=== PATIENT | male | born 1945 | race Caucasian/White ===

== ENCOUNTER 2018-07-18 21:50 | Inpatient (IN) | payer OTHER, BC ==
[~2018-07-18] VITALS: Ht 165.1 cm; Wt 63.3 kg
[~2018-07-18 21:50] MED LIST: ACYCLOVIR 400400 MG PO; ALEVE220 MG PO; CIPRO500 MG PO; DAILY VITAMIN1 EAC6 PO; FISH OIL 1,001000 M2 PO; FLAGYL500 MG PO; PRILOSEC 20 MG20 MG PO; VITAMINC500 PO
[2018-07-18 23:00] VITALS: BP 127/65
[2018-07-19] MEDS ORDERED: COLACE100 MG PO (01:38)
[2018-07-19] MEDS ORDERED: ONDANSETRON HCL4 M2 PO (01:38)
[2018-07-19 05:04] VITALS: BP 97/58
[2018-07-19 05:39] LABS: HEMATOCRIT 36.3 % (42.0-52.0); MCH 25.5 pg (26.0-34.0); MCHC 32.9 g/dL (28.0-37.0); MCV 77.6 fL (80.0-100.0); RBC 4.68 mil/uL (4.50-6.00); RDW 15.8 % (10.5-14.5); WBC 5.4 thou/uL (4.0-11.0)
[2018-07-19 05:49] LABS: PROTIME 10.1 Seconds (9.3-11.4)
[2018-07-19 05:51] LABS: CALCIUM 8.1 mg/dL (8.5-10.1); CREATININE 1.4 mg/dL (0.7-1.3); POTASSIUM 3.6 mmol/L (3.5-5.1)
[2018-07-19 07:45] VITALS: BP 117/70
[2018-07-19 10:15] LABS: % SATURATION 6 % (20-39); IRON 13 ug/dL (65-175); TIBC 217 ug/dL (250-450)
--- NOTE | 2018-07-19 10:21 | H ---
[facility] [place] [place] [address] HISTORY AND PHYSICAL Name: AHSAN VELAZQUEZ Room #: 421-P ADM IN M.R.#: [id number] Admission: 07/18/18 ������������������ Attend Phys: Jam Goldman MD Discharge: ������������������ Date of : 41 Report #: [id number] THIS REPORT FOR: //name// CC: FAM unknown Jam Goldman DATE OF SERVICE: 07/18/2018 ATTENDING PHYSICIAN: Dr. Jey Hampton. PRIMARY CARE PHYSICIAN: Dr. Jordan Schmidt. CHIEF COMPLAINT: Abdominal pain, nausea and vomiting. HISTORY OF PRESENT ILLNESS: The patient is a 72-year-old male who initially presented to [place] [facility] with complaints of abdominal discomfort, nausea and vomiting for 1 week. He describes pain in his belly as a constant discomfort that is worse when he tries to eat or drink anything. He has not been able to keep much food or liquids down for at least 1 week. He has also been having liquid brown to greenish watery stools up to 12 times per day. He states that whenever he does try to drink anything, it goes right through him. He denies seeing any blood in his emesis or his stools. He denies having any formed stool in at least 1 week. He does have a history of colon cancer and has had prior chemo and radiation as well as a bowel resection in 2000. He gets regular colonoscopies with his GI physician and states that they have been normal. 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 He did have an outpatient CT of the abdomen done earlier today, which showed possible gastric outlet obstruction; therefore, he was sent to the ER to be evaluated. The general surgeon at [facility] was not available, so he was transferred here for further evaluation. He also reports a fever up to 101.8 earlier this week. He has an NG tube placed at [facility] and 500 mL of liquid was drained. He does state that his abdominal distention and pain have improved and he has not had any further vomiting since the tube has been placed. He denies any chest pain, denies any history of kidney problems. PAST MEDICAL HISTORY: Colon cancer, status post chemo and radiation and bowel resection; prostate cancer, status post radiation treatment; osteoarthritis; small bowel obstructions. PAST SURGICAL HISTORY: Bowel resection in 2000, tonsillectomy, bilateral inguinal hernia repair, cholecystectomy, bilateral total knee replacement, and exploratory laparotomy for lysis of adhesions x 2. ALLERGIES: No known drug allergies. [address] [address] HISTORY AND PHYSICAL Name: AHSAN VELAZQUEZ Room #: 421-P [facility] IN M.R.#: [id number] Admission: 07/18/18 ������������������ Attend Phys: Jam Goldman MD Discharge: ������������������ Date of : 43 Report #: [id number] HOME MEDICATIONS: He states he is normally healthy and does not take anything other than vitamins. SOCIAL HISTORY: Denies any tobacco use, occasional alcohol use but denies daily use. Denies drug use. Lives at home with his . He walks without difficulty. He is a full code. FAMILY HISTORY: He did have an uncle with colon cancer. His mother of CVA and his father from a motor vehicle accident. REVIEW OF SYSTEMS: Twelve-point review of systems was reviewed with the patient, otherwise negative unless stated in the HPI. PHYSICAL EXAMINATION: GENERAL: The patient is an alert male in no acute distress. VITAL SIGNS: Temperature is 37.2, heart rate 86, respirations 18, blood pressure 127/65, oxygen 98% on room air. HEENT: PERRLA. Sclerae nonicteric. Oral mucosa is pink and moist. NECK: Supple, no JVD noted. CARDIAC: Normal S1, S2. No murmurs, rubs or gallops. RESPIRATORY: Breath sounds are clear bilaterally. No wheezing or rhonchi. Breathing is nonlabored. ABDOMEN: Flat, nondistended, soft and currently nontender with absent bowel sounds. NG tube is in place, draining small amounts of brown drainage. VASCULAR: No edema noted. Pedal pulses are 2+. NEUROLOGIC: The patient is alert and oriented x 3. Speech is clear. He is moving all extremities equally. No focal neuro deficits noted. SKIN: Intact. No rashes or wounds. LABORATORY DATA AND DIAGNOSTICS: Blood work done at [facility] showed a WBC of 9.9, hemoglobin 14.6, platelets 363. Sodium 136, potassium 4.4, BUN 18, creatinine 1.7 and glucose 108. LFTs are within normal limits. Albumin is 3.0. ESR is 28, magnesium 2.2. UA was positive for 2+ protein. EKG showed normal sinus rhythm, rate of 90 with PVC. Chest x-ray showed no acute findings. There was mild elevation of the right hemidiaphragm and stigmata of old granulomatous disease, the NG tube was placed in the stomach. CT scan done of the abdomen earlier today, report is unavailable, was not sent in the [facility]' transfer papers. ASSESSMENT AND PLAN: 1. Gastric outlet obstruction. The patient will be kept n.p.o. NG tube to low intermittent suction and GI is consulted for possible endoscopy. We will continue with antiemetics and pain control as needed. 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 2. Acute kidney injury. We do not have any recent labs available, but he denies any history of kidney problems, may be due to recent vomiting and [facility] [address] [place] [address] HISTORY AND PHYSICAL Name: AHSAN VELAZQUEZ Room #: 421-P ADM IN M.R.#: [id number] Admission: 07/18/18 ������������������ Attend Phys: Jam Goldman MD Discharge: ������������������ Date of : 43 Report #: [id number] diarrhea. We will continue IV fluids and follow labs. 3. Deep venous thrombosis prophylaxis, place sequential compression devices. We will continue to follow the patient closely throughout the hospitalization and make changes based on clinical status. ��������������������������������������������� <ELECTRONICALLY SIGNED> ���������������������������������������� By: ALICE Hoskins ��������������������������������������������� 07/19/18 1021 [id number] ALICE Hoskins /nt
[2018-07-19 17:02] VITALS: BP 121/64
[2018-07-19 19:27] VITALS: BP 120/71
[2018-07-20 05:58] VITALS: BP 129/73
[2018-07-20 08:20] VITALS: BP 130/71
[2018-07-20 17:20] VITALS: BP 129/75
[2018-07-20 20:08] VITALS: BP 136/73
[2018-07-21 04:50] VITALS: BP 130/77
[2018-07-21 07:37] VITALS: BP 139/73
--- NOTE | 2018-07-21 11:05 | P ---
[facility] [place] [address] PROCEDURE REPORT Name: AHSAN VELAZQUEZ Room #: 422-P ADM IN M.R.#: [id number] Admission: 07/18/18 ������������������ Attend Phys: Jam Nguyen MD Discharge: ������������������ Date of : 43 Report #: [id number] THIS REPORT FOR: //name// CC: DR NGUYEN FAM unknown Jam Nguyen DATE OF SERVICE: 07/20/2018 PROCEDURE PERFORMED: Upper endoscopy with biopsies. HISTORY OF PRESENT ILLNESS: The patient is a 72-year-old male who was admitted from a direct admit from [facility] for abdominal pain, possible gastric outlet obstruction. He has a history of colon cancer, status post resection of prostate cancer, status post radiation; previous history of small-bowel obstruction with resection. He was taking Aleve on a daily basis as well as Prilosec. A CT scan at [facility] showed a distended stomach. The patient has been having nausea, vomiting as well as abdominal pain as well as some constipation. He had a colonoscopy earlier this year by Dr. Vyas that was reportedly negative. NG tube was placed under low intermittent suction. A KUB today was performed, showed no acute findings, no signs of ileus or obstruction. Plan is for EGD to rule out gastric outlet obstruction or other abnormalities. DESCRIPTION OF PROCEDURE: The risks and benefits of the procedure were explained to the patient, those risks including but not limited to bleeding, perforation, the risk of sedation. He understood these risks and gave informed consent. Sedation was given using propofol per Anesthesia. Next, the NG tube was removed. Next, using a standard Olympus upper endoscope, the scope was placed in the patient's mouth and advanced under direct vision through the esophagus, stomach and into the second portion of the duodenum. The larynx was normal in appearance. The upper and mid esophagus were normal. In the distal esophagus, grade C erosive esophagitis was noted with ulcerations, no evidence of stricture, no evidence of bleeding. There was a diffuse moderate gastritis throughout the entire stomach. No evidence of ulcerations or erosions. Biopsies were obtained to rule out H. pylori. The pylorus was normal and patent. There was no evidence of food residual within the stomach. No evidence of outlet obstruction from the pylorus or a stricture. There was a diffuse duodenitis throughout the duodenal bulb, first and second portion. Biopsies were also obtained in the duodenum to rule out celiac sprue. Again, no evidence of obstruction on upper endoscopy today. At this point, the scope was then withdrawn and the procedure terminated. The patient tolerated the procedure well. IMPRESSION: 1. Grade C erosive esophagitis. [address] [address] PROCEDURE REPORT Name: MARCUSAHSANALIZA PARRA Room #: 422-P [facility] IN M.R.#: [id number] Admission: 07/18/18 ������������������ Attend Phys: Jam Nguyen MD Discharge: ������������������ Date of : 43 Report #: [id number] 2. Diffuse gastritis. 3. Patent pylorus. No signs of obstruction. 4. Duodenitis. RECOMMENDATIONS: 1. Await biopsy results. 2. Continue PPI therapy. 3. We will add Carafate at this time. 4. The patient is already on Zofran p.r.n. We will start clear liquids today as tolerated. If he has continued nausea and vomiting, we will likely add Reglan at that time. May need to consider a small bowel follow through if the patient has continued symptoms. Thank you for allowing me to participate in his care. ��������������������������������������������� <ELECTRONICALLY SIGNED> ���������������������������������������� By: Hu Wolf MD ��������������������������������������������� 07/21/18 1105 1142 1056 Hu Wolf MD /nt
[2018-07-21 11:13] LABS: HEMATOCRIT 41.5 % (42.0-52.0); HEMOGLOBIN 13.5 gm/dL (14.0-18.0); MCH 25.1 pg (26.0-34.0); MCHC 32.5 g/dL (28.0-37.0); MCV 77.2 fL (80.0-100.0); RBC 5.37 mil/uL (4.50-6.00); RDW 15.7 % (10.5-14.5); WBC 7.4 thou/uL (4.0-11.0)
[2018-07-21 11:24] LABS: CALCIUM 8.7 mg/dL (8.5-10.1); CREATININE 1.2 mg/dL (0.7-1.3); MAGNESIUM 1.8 mg/dL (1.8-2.4); POTASSIUM 3.8 mmol/L (3.5-5.1)
[2018-07-21 16:49] VITALS: BP 147/81
[2018-07-21 20:00] VITALS: BP 151/77
[2018-07-22 03:30] VITALS: BP 135/69
[2018-07-22 04:20] VITALS: BP 142/79
[2018-07-22 05:10] LABS: HEMATOCRIT 36.4 % (42.0-52.0); MCH 25.4 pg (26.0-34.0); MCV 77.1 fL (80.0-100.0); RBC 4.72 mil/uL (4.50-6.00); WBC 7.9 thou/uL (4.0-11.0)
[2018-07-22 05:21] LABS: CALCIUM 8.2 mg/dL (8.5-10.1); CREATININE 1.2 mg/dL (0.7-1.3); MAGNESIUM 1.7 mg/dL (1.8-2.4); POTASSIUM 3.6 mmol/L (3.5-5.1)
[2018-07-22 09:16] VITALS: BP 128/72
[2018-07-22 19:19] VITALS: BP 139/76
[2018-07-23 03:57] VITALS: BP 134/83
[2018-07-23 08:38] VITALS: BP 144/77
[2018-07-23 16:32] VITALS: BP 161/87
--- NOTE | 2018-07-23 19:06 | PATH ---
[facility] [address] [address] PATHOLOGY RPT PROCEDURE Name: AIME JAMES Room #: 422-P ADM IN M.R.#: [id number] ������������������ Admission: 07/18/18 ������������������ Date of : 43 Discharge: Report #: [id number] Path Case #: [id number] [facility] Accession Number: [id number] . 01 Material submitted: . PART A: duodenum - BX DUODENUM R/O CELIAC SPRUE PART B: stomach - BX GASTRITIS R/O H PYLORI . 01 Clinical history: . Pre-OP DX: Gastric outlet obstruction Post-OP DX: Duodenitis, gastritis, esophagitis . 02 Diagnosis: A. Small bowel mucosa, duodenum R/O celiac sprue, endoscopic biopsy: - Fundic-type metaplasia associated with moderate acute and chronic duodenitis, compatible with active peptic duodenitis. - Mild villous blunting present. - No increase in intraepithelial lymphocytes. - Negative for dysplasia or malignancy. . B. Gastric mucosa, gastritis R/O H. pylori, endoscopic biopsy: - Marked active gastritis associated with features of reactive gastropathy. - Negative for intestinal metaplasia, atrophy or dysplasia. - Negative for Helicobacter pylori (properly controlled immunohistochemical stain performed). . (IUV:subha; 07/23/2018) QMS/07/23/2018 . 02 Comment: An intensive search for Helicobacter pylori-like organisms is negative. Absence of such organisms does not entirely exclude the possibility and may be due to sampling. Other possible etiologies may include chemical gastritis, autoimmune gastritis, gastritis associated with inflammatory bowel disease. Please correlate with clinical, endoscopic, and microbiological studies if clinically indicated. (IUV:subha; 07/23/2018) . 02 Electronically signed: . Mary Chapman MD, Pathologist NPI- [id number] . 01 Gross description: . A. Received in formalin labeled "Aime James, BX duodenum, rule out celiac sprue," are 4 segments of salcedo soft tissue measuring 1.0 x 0.9 x 0.2 cm in aggregate dimensions and ranging from 0.4 to 0.5 cm in maximum [address] [address] PATHOLOGY RPT PROCEDURE Name: AIME JAMES Room #: 422-P [facility] IN M.R.#: [id number] ������������������ Admission: 07/18/18 ������������������ Date of : 43 Discharge: Report #: [id number] Path Case #: [id number] dimension. The specimen is submitted entirely in cassette A1. . B. Received in formalin labeled "Aime James, BX gastritis, rule out H. pylori," are 4 segments of salcedo soft tissue measuring 1.1 x 1.0 x 0.2 cm in aggregate dimensions and ranging from 0.3 to 0.7 cm in maximum dimension. The specimen is submitted entirely in cassette B1. (TSD; 07/20/2018) TOB/TOB . 02 Pathologist provided ICD-10: K29.80, K29.50 . 02 CPT . 264392, 940680, N43823 Specimen Comment: A courtesy copy of this report has been sent to Specimen Comment: [phone], . Specimen Comment: Report sent to / DR NGUYEN Performed at: [address] [id number] MD Armando Puentes MD Phone: [phone] Performed at: [address] [id number] MD Mary Chapman MD Phone: [phone]
[2018-07-23 20:07] VITALS: BP 126/65
[2018-07-24 04:19] VITALS: BP 129/74
[2018-07-24 07:45] VITALS: BP 126/68
[2018-07-24 16:15] VITALS: BP 112/67
--- NOTE | 2018-07-24 17:06 | PATH ---
[facility] [address] [place] [address] PATHOLOGY RPT PROCEDURE Name: AIME JAMES Room #: 422-P ADM IN M.R.#: [id number] ������������������ Admission: 07/18/18 ������������������ Date of : 43 Discharge: Report #: [id number] Path Case #: [id number] [facility] Accession Number: [id number] . 01 Material submitted: . colon - RANDOM COLON BX . 01 Clinical history: . Pre-OP DX: Abdominal pain Post-OP DX: Colitis . 02 Diagnosis: Large intestine mucosa, random colon, endoscopic biopsy: - Moderate to marked acute/active colitis. - Negative for dysplasia or malignancy. (IUV:rn surgery; 07/24/2018) MBR/07/24/2018 . 02 Comment: Examination of the "random colon" biopsy tissue shows marked acute cryptitis, acute surface epithelial inflammation, ulceration, crypt abscess formation as well as a markedly cellular lamina propria comprised of lymphocytes, plasma cells as well as eosinophils. Basal plasmacytosis is identified in a few fragments. Granulomata, viral inclusions, or architectural abnormalities are not identified. All fragments sampled are involved by a similar intensity of inflammation. Given the description, the differential diagnosis includes marked acute colitis or colitis of infectious-type of etiology as well as inflammatory bowel disease including ulcerative colitis/Crohn's disease, acute diverticulitis, as well as drug-induced colitis. Please correlate clinically and with the endoscopic findings. (IUV:rn surgery; 07/24/2018) . 02 Electronically signed: . Mary Chapman MD, Pathologist NPI- [id number] . 01 Gross description: . Received in formalin labeled "Aime James random colon BX," are 6 segments of salcedo soft tissue measuring 1.3 x 1.1 x 0.3 cm in aggregate dimensions and ranging from 0.3 to 0.5 cm in maximum dimension. The specimen is submitted entirely in cassette A1. (TSD; 07/23/2018) TOB/TOB . 02 Pathologist provided ICD-10: K52.[address] [address] PATHOLOGY RPT PROCEDURE Name: AIME JAMES AIDA Room #: 422-P ADM IN M.R.#: [id number] ������������������ Admission: 07/18/18 ������������������ Date of : 43 Discharge: Report #: [id number] Path Case #: [id number] . 02 CPT . [id number] Specimen Comment: A courtesy copy of this report has been sent to Specimen Comment: [phone], . Specimen Comment: Report sent to / DR NGUYEN Performed at: [address], [place], [place] [id number] MD Armando Puentes MD Phone: [phone] Performed at: [address] [id number] MD Mary Chapman MD Phone: [phone]
[2018-07-24 21:00] VITALS: BP 141/77
[2018-07-25 04:11] VITALS: BP 128/72
[2018-07-25 05:47] LABS: HEMATOCRIT 32.2 % (42.0-52.0); HEMOGLOBIN 10.6 gm/dL (14.0-18.0); MCH 25.3 pg (26.0-34.0); MCHC 32.8 g/dL (28.0-37.0); MCV 77.2 fL (80.0-100.0); RBC 4.18 mil/uL (4.50-6.00); WBC 8.7 thou/uL (4.0-11.0)
[2018-07-25 06:06] LABS: CALCIUM 7.9 mg/dL (8.5-10.1); CREATININE 1.3 mg/dL (0.7-1.3); MAGNESIUM 1.6 mg/dL (1.8-2.4); POTASSIUM 3.1 mmol/L (3.5-5.1)
[2018-07-25 08:06] VITALS: BP 135/83
[2018-07-25] MEDS ORDERED: CIPRO250 M1 PO (13:35)
[2018-07-25] MEDS ORDERED: CARAFATE 1 GM TA1 G1 PO (13:36)
[2018-07-25] MEDS ORDERED: FLAGYL 250 MG250 MG PO (13:36)
[2018-07-25 17:57] VITALS: BP 135/83
== END 2018-07-25 18:34 | disposition home or self-care (01) | DRG 385 ==
LOC: 4E 21:50
PROVIDERS: Nurse Practitioner Acute Care; ADMIT Internal Medicine
PROC: 0DB98ZX Excision of Duodenum, Via Natural or Artificial Opening Endoscopic, Diagnostic (ICD-10-PCS; principal; 2018-07-18)
PROC: 0D9670Z Drainage of Stomach with Drainage Device, Via Natural or Artificial Opening (ICD-10-PCS; principal; 2018-07-18)
PROC: 0DB68ZX Excision of Stomach, Via Natural or Artificial Opening Endoscopic, Diagnostic (ICD-10-PCS; principal; 2018-07-18)
PROC: 0DBE8ZX Excision of Large Intestine, Via Natural or Artificial Opening Endoscopic, Diagnostic (ICD-10-PCS; 2018-07-23)
PROC: 0DBN8ZX Excision of Sigmoid Colon, Via Natural or Artificial Opening Endoscopic, Diagnostic (ICD-10-PCS; 2018-07-23)
DX: K51.00 Ulcerative (chronic) pancolitis without complications (principal); E43 Unspecified severe protein-calorie malnutrition; N17.9 Acute kidney failure, unspecified; K31.1 Adult hypertrophic pyloric stenosis; K29.80 Duodenitis without bleeding; K29.70 Gastritis, unspecified, without bleeding; K20.9 Esophagitis, unspecified; M19.90 Unspecified osteoarthritis, unspecified site; E87.6 Hypokalemia; E83.42 Hypomagnesemia; N18.9 Chronic kidney disease, unspecified; K57.30 Diverticulosis of large intestine without perforation or abscess without bleeding; D50.9 Iron deficiency anemia, unspecified; Z79.1 Long term (current) use of non-steroidal anti-inflammatories (NSAID); Z92.21 Personal history of antineoplastic chemotherapy; Z85.038 Personal history of other malignant neoplasm of large intestine; Z90.49 Acquired absence of other specified parts of digestive tract; Z88.5 Allergy status to narcotic agent; Z68.23 Body mass index [BMI] 23.0-23.9, adult
CPT/HCPCS: 10783; 62110; 62900; 70005

== ENCOUNTER → 2018-10-29 | Outpatient (CLI) | payer OTHER, BC ==
[~2018-10-29] VITALS: Ht 165.1 cm; Wt 63.5 kg
[~2018-10-29] MED LIST changes: +CARAFATE 1 GM TA1 G1 PO; +CENTRUM SILVER1 EAC2 PO; +CIPRO250 M1 PO; +COLACE100 MG PO; +COLESTID1 GM PO; +FLAGYL 250 MG250 MG PO; +MOBIC15 MG PO; +ONDANSETRON HCL4 M2 PO; +PRILOSEC OTC20 MG PO; +VITAMIN E1000 UNI3 PO
== END | disposition home or self-care (01) ==
LOC: GI 09:15
DX: K21.0 Gastro-esophageal reflux disease with esophagitis (principal); M19.90 Unspecified osteoarthritis, unspecified site; Z85.46 Personal history of malignant neoplasm of prostate; Z98.890 Other specified postprocedural states; Z90.49 Acquired absence of other specified parts of digestive tract
CPT/HCPCS: 62110; 62900

== ENCOUNTER → 2020-09-25 | Outpatient (CLI) | payer OTHER, BC | LOC: SJCVCIMAG 08:54 | PROVIDERS: ATTEND Internal Medicine Cardiovascular Disease | DX: I08.8 Other rheumatic multiple valve diseases (principal); R06.00 Dyspnea, unspecified ==